=== PATIENT | male | born 1985 | race Caucasian/White ===

== ENCOUNTER 2019-05-30 17:10 | Inpatient (IN) | payer SELFPAY ==
--- NOTE | ~2019-05-30 | XR_ITS ---
EXAMINATION: XR chest 1V portable INDICATION: Right-sided chest pain and shortness of breath TECHNIQUE: Portable AP chest at 1821 hours COMPARISON: None available FINDINGS: There are minimal opacities of the lung bases and right midlung zone. There is no pleural e ffusion or pneumothorax. The cardiomediastinal silhouette is normal. The visualized bones and soft ti ssues are unremarkable. IMPRESSION: 1. Minimal opacities of the lung bases and right midlung zone, consistent with atelectasis versus pne umonia. Reviewed, dictated and finalized at location A. IMPRESSION: 1. Minimal opacities of the lung bases and right midlung zone, consistent with atelectasis versus pneumonia.
--- NOTE | ~2019-05-30 | CT_ITS ---
EXAMINATION: CTA chest DATE: 05/30/2019 20:51 INDICATION: Chest pain and hypertension TECHNIQUE: Computed tomographic angiography (CTA) of the chest was performed without and with 100 mL Omnipque-350 intravenous contrast. Maximum intensity projection 3D-reconstructions of the aorta and o ther arteries were constructed by the technologist on a separate workstation. The dose-length product (DLP) was 1265.85 mGy-cm. Automated exposure control and iterative reconstruction technique were emp loyed. COMPARISON: None. FINDINGS: The aorta is normal without evidence of dissection or aneurysm. The lungs are free of acute opacities. No pathologically enlarged thoracic lymph nodes are identified. The heart size is normal. There is mild thoracic spondylosis. The liver is diffusely low in attenuation when compared with the spleen, consistent with hepatic steatosis. The common hepatic artery arises directly from the superi or mesenteric artery. IMPRESSION: 1. No CT correlate for the patient's symptoms. Reviewed, dictated and finalized at location A.
--- NOTE | 2019-05-30 17:17 | ECG_ITS ---
Measurements Intervals [place] Rate: 85 P: 32 LA: 126 QRS: 27 QRSD: 106 T: -24 QT: 340 QTc: 405 Interpretive Statements SINUS RHYTHM ST-T WAVE ABNORMALITY IN INFERIOR LEADS- CONSIDER ISCHEMIA BASELINE ARTIFACT- I, II, III ABNORMAL ECG Electronically Signed On 05-31-2019 8:45:42 CDT by George Erazo D.O.
[2019-05-30 17:22] VITALS: BP 160/104; PULSE 81; RESP 12; TEMP 36.9; O2SAT 96
[2019-05-30 17:24] VITALS: PULSE 87
[2019-05-30 17:28] VITALS: O2SAT 98
[2019-05-30 18:26] LABS: Basophils Absolute Auto 0.1 K/mm3 (0.0-0.1); Basophils Percent Auto 0.8 % (0.2-1.2); Eosinophils Absolute Auto 0.2 K/mm3 (0-0.3); Eosinophils Percent Auto 2.2 % (0-4.4); Hematocrit 39.5 % (42.0-52.0); Immature Granulocyte Absolute 0.05 K/mm3 (0.00-0.031); Immature Granulocyte Percent A 0.6 % (0-0.5); Lymphocytes Absolute Auto 2.54 K/mm3 (0.9-3.2); Lymphocytes Percent Auto 29.4 % (18.3-44.2); Mean Corpuscular Hemoglobin 35.7 pg (26-34); Mean Corpuscular Volume 88.2 fl (80-100); Mean Platelet Volume 9.9 fl (7.4-10.4); Monocytes Absolute Auto 0.6 K/mm3 (0.1-0.6); Neutrophils Absolute Auto 5.2 K/mm3 (1.3-6.7); Platelet Count Result 234 k/mm3 (150-375); Red Blood Count 4.48 M/mm3 (4.6-6.20); Red Cell Distribution Width 12.4 % (11.5-14.5); White Blood Count 8.6 K/mm3 (4.5-10.0)
[2019-05-30 18:46] LABS: Mean Corpuscular HGB Conc 40.5 g/dl (32-36)
[2019-05-30 19:01] LABS: Alanine Aminotransferase 48 U/L (4-50); Albumin Level 3.7 g/dL (3.5-5.1); Alkaline Phosphatase 89 U/L (38-126); Aspartate Amino Transferase 55 U/L (17-59); Bilirubin,Total 0.6 mg/dL (0.2-1.3); Sodium 135 mmol/L (137-145); Troponin I 0.401 ng/mL (0.000-0.034)
[2019-05-30] MEDS: ASPIRIN 81 MG CHEWABLE TABLET 324 MG PO (19:22)
[2019-05-30 19:23] VITALS: BP 195/119; PULSE 101; RESP 20; O2SAT 99
--- NOTE | 2019-05-30 19:23 | ED.CHESTPAIN ---
HPI - Chest Pain General Chief Complaint: Chest Pain Stated Complaint: sudden onset cp/sob Time Seen by Provider: 05/30/19 17:48 Source: patient and EMS Mode of arrival: EMS Limitations: no limitations History of Present Illness HPI narrative: 33-year-old male Obese no known other medical history Complains of onset of right sided chest and arm pain which began on about an hour before arrival when he went to the bathroom at work Worsened by breathing movement movement of his arm and in certain positions No shortness of breath no nausea no dizziness no palpitations complaint: chest pain Onset (ago): hour(s) Timing of current episode: constant and still present Prior episodes: No Onset: other (with minimal exertion) Pain location: right chest Pain radiation: right arm Severity: moderate Quality: aching, sharp and shooting Relieving factors: remaining still Exacerbating factors: inspiration and movement Risk Factors Coronary artery disease risk factors: none Related Data Home Medications Medication Instructions Recorded Confirmed No Home Medications 05/30/19 05/30/19 Allergies Allergy/AdvReac Type Severity Reaction Status Date / Time clonidine [From Catapres] Allergy Rash Verified 05/30/19 17:25 Review of Systems Review of Systems: All systems reviewed & are unremarkable except as noted in HPI and below Constitutional: Constitutional: Denies chills and Denies fever(s) ENT: Denies dysphagia and Denies sore throat Cardiovascular: Cardiovascular: Reports chest pain and Reports radiating jaw, neck or arm pain Respiratory: Respiratory: Reports no additional respiratory complaints, Denies cough and Denies dyspnea Gastrointestinal: Gastrointestinal: Denies nausea and Denies vomiting Musculoskeletal: Musculoskeletal: Denies myalgias, Denies arthralgias and Denies joint swelling Neurologic: Denies dizziness, Denies syncope and Denies focal weakness PMFSH Social History Social History Gender identity (if verbalized by the patient): Male Exam Const: General: healthy appearing, no acute distress and well developed Nutritional Appearance: well nourished and obese Orientation/consciousness: patient oriented x3 (alert) and Other orientation findings (Alert) Limitations: no limitations HENMT: Head: normocephalic and atraumatic Ears: external ears normal General nose exam: No nasal discharge present and no epistaxis Face and sinus: face symmetric Mouth: Yes lip normal, Yes tongue normal and Yes moist mucous membranes Throat: other (No exudate, no erythema) Eyes: Conjunctivae: conjunctivae normal Sclera: sclerae normal EOM: EOMs intact bilaterally Neck: Neck: full ROM, no lymphadenopathy and supple Thyroid: thyroid normal Chest: Chest palpation & inspection: tenderness Other: mildly tender, hard to reproduce w/ palpation Resp: Effort & Inspection: normal respiratory effort Auscultation: clear to auscultation bilaterally, no rales, no rhonchi, no wheezes and other (breath sounds equal) Cardio: Rate: regular rate Rhythm: regular rhythm Heart sounds: no gallops and no murmurs GI: Inspection: non-distended GI Palp: No abdominal tenderness and Yes Soft to palpation Auscultation: other (bowel sounds present) : General: Yes no CVA tenderness Back/Spine/Pelvis: Back: no CVA tenderness Thoracic/Lumbar Spine: thoracic and lumbar spine normal to inspection Skin: General skin exam: normal color and no rashes or lesions noted Neuro: General: patient oriented x3 (alert), moves all extremities and no focal motor deficits Cranial nerves: Yes facial symmetry Speech: normal speech Motor exam (neuro): Motor abnormalities not present Extrem: General: normal to inspection, full ROM and no pedal edema Psych: Affect: normal affect Course Course Emergency Course: trop returned high and was trended, and doubled his cp was present off and on but
--- NOTE | 2019-05-30 19:25 | ECG_ITS ---
Measurements Intervals [place] Rate: 90 P: 43 MA: 130 QRS: 28 QRSD: 104 T: -17 QT: 335 QTc: 410 Interpretive Statements SINUS RHYTHM BORDERLINE ST-T WAVE ABNORMALITY- INFERIOR LEADS BASELINE WANDER- V1, V4-V6 BORDERLINE ECG Electronically Signed On 05-31-2019 8:48:21 CDT by George Erazo D.O.
[2019-05-30] MEDS: NITROGLYCERIN OINTMENT 1 INCH DOSE TRANSDERM (19:39)
[2019-05-30] MEDS: LABETALOL HCL INJ 100 MG/20 ML VIAL 20 MG IV PUSH (20:04)
[2019-05-30 20:22] LABS: Blood Urea Nitrogen 15 mg/dL (9-20); Carbon Dioxide 20 mmol/L (22-30); Chloride 104 mmol/L (98-107); Estimated CRCL calculation 211 ml/min; Estimated Glomerular Filt Rate > 60; Glucose 163 mg/dL (75-110); Potassium 4.5 mmol/L (3.4-5.0)
[2019-05-30 20:24] LABS: Lipase 98 U/L (23-300)
[2019-05-30 20:55] LABS: Cholesterol 405 mg/dL (0-200); Triglycerides > 2625 mg/dL (<150)
[2019-05-30 21:05] VITALS: BP 150/82; PULSE 84; RESP 20; O2SAT 97
[2019-05-30] MEDS: NITROGLYCERIN SL 0.4 MG TABLET SUBLINGUAL (21:29)
[2019-05-30 21:50] LABS: Troponin I 0.759 ng/mL (0.000-0.034)
[2019-05-30] MEDS: MORPHINE SULFATE 4 MG/ML INJ 6 MG IV PUSH (22:54)
[2019-05-30] MEDS: HEPARIN SODIUM 5,000 UNITS/ML VIAL 4000 UNITS IV PUSH (22:59)
[2019-05-30] MEDS: NITROGLYCERIN/D5W 200 MCG/ML 50 MG/250 ML BTL 6 MG IV CONT (23:14)
[2019-05-30] MEDS: HEPARIN SOD/D5W 100 UNITS/ML 25,000 UNITS/250 ML BAG 10 UNITS IV CONT (23:25)
[2019-05-30] MEDS: INSULIN HUMAN REGULAR (*BKC) 100 UNITS in SODIUM CHLORIDE 0.9% IV 99 ML IV CONT (23:34)
[2019-05-30] MEDS: DEXTROSE 5% IN WATER 500 ML 100 ML IV CONT (23:40)
[2019-05-30 23:41] LABS: Glucose Point of Care 175 (65-105)
[2019-05-31] VITALS (15 sets, daily range): BP systolic 126–160; BP diastolic 70–103; PULSE 74–105; RESP 10–21; TEMP 36.7–37.1; O2SAT 93–97; BMI 40.8
--- NOTE | 2019-05-31 00:53 | ADMGEN ---
This patient, Doron Gerber, was admitted to Intensive Care Unit-11. Patient/family oriented to hospital policies and general routines including ID bracelet, bed and alarms, visiting hours, pain management, procedures, bathroom and other care routines, personal items, smoking policy, room service/diet, and visiting hours. Valuables list has been completed. Information on how to activate the Rapid Response Team has been discussed. Patient/Family are encouraged to report perceived risks to care and to ask questions if they do not understand what they are told or what they should do.
--- NOTE | 2019-05-31 01:12 | ECG_ITS ---
Measurements Intervals [place] Rate: 82 P: 28 MD: 121 QRS: 43 QRSD: 98 T: -21 QT: 346 QTc: 405 Interpretive Statements SINUS RHYTHM NONSPECIFIC ST & T-WAVE ABNORMALITY- ANTEROLAT/INF LEADS BORDERLINE ECG Electronically Signed On 06-02-2019 7:10:49 CDT by George Erazo D.O.
[2019-05-31 01:36] LABS: Glucose Point of Care 153 (65-105)
--- NOTE | 2019-05-31 02:01 | PM.IMHP ---
H&P: HPI History of Present Illness Chief complaint: Nstemi, Hypercholesterolemia Narrative: This is a morbidly obese male who presented to the hospital with a complaint of intermittent chest pain over the past 3 weeks that has worsened yesterday. He describes having exertional chest pain over the past 3 weeks that would resolve after he sat down and rested. Yesterday he woke up with chest pain and had continuous chest pain all day long. His chest pain worsened with any kind of exertion and radiated towards his right arm. Associated symptoms included diaphoresis and shortness of breath. On arrival to the ER the patient was evaluated and found to have an elevated troponin. He was treated with nitroglycerin and ASA. He was heparinized and placed on a continuous Nitro drip as his chest pain continued. Cardiology, Dr. Donohue was consulted by ER doctor. The patient was admitted to the ICU for further care. On my encounter with the patient he is still having ongoing chest pain and is currently on a nitro drip at 25 mcg/hr. He denies any recent fevers, sore throat, palpitations, abd pain, dysuria, nausea, vomiting, diarrhea, rectal bleeding or LE swelling. His last stress test was over 10 years ago. His brother was known to have an WA at age 32. The patient smokes 1 ppd and is known to have smoked at one point 5 ppd for 10 years. Review of Systems Review of Systems: All systems reviewed & are unremarkable except as noted in HPI and below PMFSH Past Medical History Medical History Pancreatitis Surgical History Surgical History History of cholecystectomy Family History Family History Grandparent Heart failure Heart attack Lung cancer Colon cancer Liver cancer Pancreatic cancer Esophageal cancer Diabetes mellitus Mother Heart attack Breast cancer Liver cancer Diabetes mellitus Father Heart failure Heart attack Diabetes mellitus Sibling Diabetes mellitus Other Hypertension Social History Social History Smoking packs per day: 1 Smoking cigarettes per day: 20.0 Years smoked: 23 Smoking pack-years: 23.00 Smoking status: Current every day smoker Tobacco type: cigarettes Second hand tobacco smoke exposure: Yes Alcohol intake: current Drinks per week: 1 Substance use: former Substance use type: marijuana Last use: March Gender identity (if verbalized by the patient): Male Spiritual care concerns: No Meds Home Medications and Allergies Home Medications Medication Instructions Recorded Confirmed Type No Home Medications 05/30/19 05/30/19 History Allergies Allergy/AdvReac Type Severity Reaction Status Date / Time clonidine [From Catapres] Allergy Rash Verified 05/30/19 17:25 Vital Signs Vital Signs - 24 hr 05/30/19 17:22 05/30/19 17:24 05/30/19 17:28 Temperature 36.9 C Pulse Rate 81 87 Respiratory Rate 12 Blood Pressure 160/104 H Pulse Oximetry 96 98 05/30/19 19:23 05/30/19 21:05 05/31/19 00:37 Temperature 36.7 C Pulse Rate 101 H 84 105 H Respiratory Rate 20 20 20 Blood Pressure 195/119 H 150/82 H 147/79 H Pulse Oximetry 99 97 97 Exam Const: General: cooperative, no acute distress, alert, awake and ill appearing chronically Nutritional Appearance: obese morbidly obese Orientation/consciousness: patient oriented x3 HENMT: Head: normal to inspection General nose exam: Normal external nose present Face and sinus: normal facial exam Mouth: Yes Normal oral and palatal mucosa present and Yes oropharynx normal Eyes: Pupils: Equal, round and reactive pupils present EOM: EOMs intact bilaterally Neck: Neck: supple and no JVD Thyroid: thyroid normal Lymphatic: lymphadenopathy not noted Resp: Effort & Insp
[2019-05-31] MEDS: MORPHINE SULFATE 2 MG/ML INJ IV PUSH (02:27)
[2019-05-31] MEDS: NITROGLYCERIN/D5W 200 MCG/ML 50 MG/250 ML BTL 7.5 MG IV CONT (02:30)
[2019-05-31 02:35] LABS: Glucose Point of Care 140 (65-105)
[2019-05-31] MEDS: INSULIN HUMAN REGULAR (*BKC) 100 UNITS in SODIUM CHLORIDE 0.9% IV 99 ML IV CONT (02:40)
[2019-05-31 03:35] LABS: Glucose Point of Care 135 (65-105)
[2019-05-31] MEDS: DEXTROSE 5% 1,000 ML 1,000 ML 150 ML IV CONT (03:36)
[2019-05-31 05:28] LABS: Glucose Point of Care 126 (65-105)
[2019-05-31 05:28] LABS: Glucose Point of Care 141 (65-105)
[2019-05-31] MEDS: MORPHINE SULFATE 4 MG/ML INJ IV PUSH ×2 (05:28→08:30)
[2019-05-31 05:51] LABS: Hemoglobin A1C 7.2 % (<5.7)
[2019-05-31 06:20] LABS: Basophils Percent Auto 0.5 % (0.2-1.2); Eosinophils Absolute Auto 0.2 K/mm3 (0-0.3); Eosinophils Percent Auto 2.7 % (0-4.4); Hematocrit 33.5 % (42.0-52.0); Hemoglobin 13.1 g/dL (14.0-18.0); Immature Granulocyte Absolute 0.06 K/mm3 (0.00-0.031); Immature Granulocyte Percent A 0.8 % (0-0.5); Immature Platelet Fraction Pct 1.4 % (0.9-11.2); Lymphocytes Absolute Auto 2.65 K/mm3 (0.9-3.2); Lymphocytes Percent Auto 34.3 % (18.3-44.2); Mean Corpuscular Hemoglobin 34.6 pg (26-34); Mean Corpuscular Volume 88.4 fl (80-100); Mean Platelet Volume 10.5 fl (7.4-10.4); Monocytes Absolute Auto 0.5 K/mm3 (0.1-0.6); Monocytes Percent Auto 6.1 % (2.6-8.5); Neutrophils Absolute Auto 4.3 K/mm3 (1.3-6.7); Neutrophils Percent Auto 55.6 % (45.5-73.1); Nucleated Red Blood Cells Perc 0.3 % (0.0-0.2); Platelet Count Result 270 k/mm3 (150-375); Red Blood Count 3.79 M/mm3 (4.6-6.20); White Blood Count 7.7 K/mm3 (4.5-10.0)
[2019-05-31 06:21] LABS: Mean Corpuscular HGB Conc 39.1 g/dl (32-36)
[2019-05-31 06:24] LABS: Glucose Point of Care 136 (65-105)
[2019-05-31 07:29] LABS: Blood Urea Nitrogen 16 mg/dL (9-20); Calcium 7.9 mg/dL (8.4-10.2); Carbon Dioxide 18 mmol/L (22-30); Chloride 106 mmol/L (98-107); Estimated CRCL calculation 158 ml/min; Estimated Glomerular Filt Rate > 60; Glucose 126 mg/dL (75-110); Potassium 3.8 mmol/L (3.4-5.0); Sodium 134 mmol/L (137-145)
[2019-05-31] MEDS: HEPARIN SODIUM 5,000 UNITS/ML VIAL 4000 UNITS IV PUSH (07:44)
--- NOTE | 2019-05-31 08:10 | PM.CNCAR ---
Assessment and Plan Additional Plan 33-year-old white male with: Chest pain syndrome which has features that are worrisome for ischemia and other features which of course are atypical. He has risk factors including a family history of markedly premature coronary disease, longstanding cigarette smoking and severe dyslipidemia. The patient does now have some pain radiating into the right lateral portion of his abdomen. He did indicate that some of the symptoms are reminiscent of his bout of pancreatitis 6 years ago. He certainly has high enough triglyceride levels to be a concern for this as well. At this point I believe we need to definitively assess his coronary arteries and I recommended bringing him for angiography this morning. The patient understands this and is agreeable. The cathode builder team that is on-call will be called in we will proceed with this exam this morning. Sancho Donohue MD [facility] History of Present Illness History of Present Illness Consult date/time: Date of service: 05/31/19 08:10 Consult reason: chest pain Reason For Visit: Nstemi, Hypercholesterolemia Narrative: This is a 33-year-old white male who has no previous history of documented cardiac disease he was admitted yesterday evening from the emergency room with chest pain to the hospitalist service. Because of this and elevation in troponin I am seeing him in consultation. The patient states that he has had a pattern of central chest discomfort with exertion for 2 or 3 weeks. The discomfort was noticed when he was walking from the parking lot into his placement placement. He works for [employer] and states that when he would walk into work he would have to stop because of the symptoms and after admitted her to these would usually resolve. Yesterday morning he had the onset of the symptoms and he sat down to rest and instead of resolving it did not. He then began to experience some other symptoms of some shortness of breath. Because of this he was taken by ambulance to the emergency room for evaluation. In the emergency department his electrocardiogram was found to be abnormal with some inferior T-wave inversion. He does not have any significant ST segment deviation or any obvious occur current of injury. His troponin level did rise up some on the 2nd sample and so he was started on a heparin infusion at, IV nitroglycerin. Given aspirin and a dose of labetalol it looks like and placed in the ICU. In this setting I was asked to see him in consultation. This morning he states he still has some chest pain in the epigastric region the pain this morning is radiating down into the right lateral abdominal wall. In the emergency room he had some radiation of the pain into the right arm that is no longer the case at this moment. In the emergency room he did have a chest CT which was negative. The patient does interestingly have a history of a severe episode of pancreatitis which states he was in the hospital somewhere in [place] for a 5/6 months about 6 years ago. He was apparently in a comatose state and does not remember much about that hospitalization. He states he did have a cholecystectomy at that time. He does have a family history of coronary artery disease prematurely in his mother and 1 brother. The patient's laboratory data in addition to a [id number] troponin rise also shows marked dyslipidemia with high cholesterol and extremely high triglyceride levels. Review of Systems Constitutional: Constitutional: Reports no additional constitutional complaints Eyes: Eyes: Reports no additional eye complaints ENT: Reports system reviewed and no additional complaints, except as documented Cardiovascular: Cardiovascular: Reports as per HPI and Reports chest pain Respiratory: Respiratory: Reports no additional respiratory complaints Gastrointestinal: Gastrointestinal: Reports as per HPI Genitourinary: Genitourinary: Reports no additional male genit
[2019-05-31] MEDS: FENOFIBRATE 160 MG TABLET PO (08:24)
[2019-05-31] MEDS: OMEGA 3 POLYUNSAT FATTY ACIDS 1 GM CAP PO (08:24)
[2019-05-31] MEDS: ASPIRIN 81 MG CHEWABLE TABLET PO (08:25)
[2019-05-31 08:29] LABS: Glucose Point of Care 155 (65-105)
[2019-05-31 08:29] LABS: Glucose Point of Care 139 (65-105)
[2019-05-31 09:08] LABS: Lipase 119 U/L (23-300)
--- NOTE | 2019-05-31 09:27 | WPDCNINT ---
Assessment and Plan Assessment and plan (1) Acute non-ST elevation myocardial infarction (NSTEMI): Code(s): I21.4 - Non-ST elevation (NSTEMI) myocardial infarction Status: Acute Assessment and Plan: patient on aspirin, heparin infusion and nitroglycerin infusion cardiology is planning to take patient for cardiac catheterization today. Dr. Donohue wants to wait for catheterization report before starting patient on Plavix for statin at this time ECHO is ordered (2) Hypertriglyceridemia: Code(s): E78.1 - Pure hyperglyceridemia Status: Acute Assessment and Plan: insulin infusion and dextrose patient on Tricor statin will be started depending on cath report (3) Tobacco dependence: Code(s): F17.200 - Nicotine dependence, unspecified, uncomplicated Status: Acute Assessment and Plan: encourage patient to quit (4) Morbid obesity: Code(s): E66.01 - Morbid (severe) obesity due to excess calories Status: Acute Assessment and Plan: encourage patient to try to lose weight by eating healthy and exercising daily once acute illness is resolved (5) HTN (hypertension) with goal to be determined: Code(s): I10 - Essential (primary) hypertension Status: Acute Assessment and Plan: currently controlled on nitroglycerin infusion patient will be started on p.o. medication after cardiac catheterization are available (6) Abnormal glucose: Code(s): R73.09 - Other abnormal glucose Status: Acute Assessment and Plan: on insulin infusion at this time Additional Plan DVT prophylaxis - heparin drip Stress ulcer prophylaxis - not indicated Nutrition - NPO Code Status - Full Code Dredge Master Consult Note Consult date: 05/31/19 Time Seen: 07:20 HPI: Doron Gerber is a 33 year old male with past medical history of pancreatitis, gallstones and cholecystectomy presented yesterday to ER with chief complaint of chest pain. In the ER patient was found to be hypertensive, EKG did not showed ST elevation, had elevated troponin and very high level of triglycerides.. Cardiology was consulted. Patient was started on IV heparin, aspirin, nitroglycerin infusion and insulin infusion and admitted to ICU. CTA of chest was negative Patient told me that patient has been having chest pain for last 2-3 weeks which was initially mostly on exertion, on the right radiated to his and neck. It is 5 to 7/10 severe and intermittent. Pain was Sharp. 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 yesterday the pain became very severe 10/10 and was on his right side of chest and abdomen and radiated to his arm and neck other aspects of pain were similar. this morning patient feels better although he states he has pain is 4 to 5/10 as it was partially help with nitroglycerin and morphine he denies any shortness of breath, cough, fever, nausea vomiting, headache Review of Systems Constitutional: Constitutional: Denies fever(s), Reports snoring, Denies stops breathing during sleep and Reports weight gain Eyes: Eyes: Denies blurry vision ENT: Reports system reviewed and no additional complaints, except as documented Cardiovascular: Cardiovascular: Reports chest pain with activity, Denies rapid heart rate, Denies leg edema, Denies palpitations, Denies dyspnea, Denies dyspnea on exertion, Denies orthopnea and Denies paroxysmal nocturnal dyspnea Respiratory: Respiratory: Denies change in phlegm color, Denies cough and Denies hemoptysis Gastrointestinal: Gastrointestinal: Reports no additional gastrointestinal complaints Genitourinary: Genitourinary: Reports no additional male genitourinary complaints Musculoskeletal: Musculoskeletal: Reports no additional musculoskeletal complaints Integumentary/Breasts: Skin/Breast: Reports system reviewed and no additional complaints, except as docu Neurologic: Reports system reviewed and
[2019-05-31 09:35] LABS: Glucose Point of Care 146 (65-105)
[2019-05-31] MEDS: DEXTROSE 5%/0.9% SOD CHL 1,000 ML 150 ML IV CONT (10:00)
--- NOTE | 2019-05-31 10:02 | WPDMODSED ---
Moderate Sedation Note-Pt Data Patient Data Present Complaint: Chest pain/acute coronary syndrome hypertriglyceridemia Procedure to be performed/Plan: left heart catheterization Allergies Allergy/AdvReac Type Severity Reaction Status Date / Time clonidine [From Esther] Allergy Rash Verified 05/30/19 17:25 Home Medications Medication Instructions Recorded Confirmed Type No Home Medications 05/30/19 05/30/19 History Current Medications: Active Medications Aspirin (Aspirin Chewable) 81 mg PO DAILY@0800 [facility] Last Admin: 05/31/19 08:25 Dose: 81 mg Documented by: Dextrose (Dextrose 50% Syringe) 12.5 gm IV PUSH PRN PRN; Protocol PRN Reason: Hypoglycemia Fenofibrate (Fenofibrate) 160 mg PO DAILY [facility] Last Admin: 05/31/19 08:24 Dose: 160 mg Documented by: Fish Oil (Lovaza) 1 gm PO QAM [facility] Last Admin: 05/31/19 08:24 Dose: 1 gm Documented by: Glucagon (Glucagon For Inj) 1 mg IM PRN PRN; Protocol PRN Reason: Hypoglycemia Glucose (Glutose 15) 15 gm PO PRN PRN; Protocol PRN Reason: Hypoglycemia Heparin Sodium (Porcine) (Heparin Sodium) 4,000 units IV PUSH PRN PRN PRN Reason: aPTT less than 55 seconds Last Admin: 05/31/19 07:44 Dose: 4,000 units Documented by: Heparin Sodium (Porcine) (Heparin Sodium) 4,000 units IV PUSH PRN PRN PRN Reason: aPTT 55 - 70 seconds Heparin Sodium/Dextrose (Heparin Sodium/D5w 100 Units/Ml) 25,000 units in 250 mls @ 0 mls/hr IV CONT .Q0M [facility]; Protocol Last Titration: 05/31/19 08:30 Dose: 0 units/hr, 0 mls/hr Documented by: Nitroglycerin/Dextrose (Nitroglycerin In 5% Dextrose 50 Mg) 50 mg in 250 mls @ 1.5 mls/hr IV CONT .Q24H [facility]; Protocol Last Titration: 05/31/19 05:30 Dose: 25 mcg/min, 7.5 mls/hr Documented by: Insulin Aspart 100 units/ (Sodium Chloride) 100 mls @ 1.5 mls/hr IV CONT .Q24H [facility]; Protocol Last Titration: 05/31/19 06:23 Dose: 1.5 units/hr, 1.5 mls/hr Documented by: Dextrose (Dextrose 5% 1,000 Ml) 1,000 mls @ 150 mls/hr IVPB PRN PRN; Protocol PRN Reason: Hypoglycemia Dextrose/Sodium Chloride (Dextrose 5% Sodium Chloride 0.9%) 1,000 mls @ 150 mls/hr IV CONT .Q6H40M LISA Ondansetron HCl (Zofran Inj) 4 mg IV PUSH Q4H PRN PRN Reason: Nausea Sedation/Anesthesia: No previous sedation/anesthesia problems (including family history). PMF Past Medical History Medical History Pancreatitis Surgical History Surgical History History of cholecystectomy Family History Family History Grandparent Heart failure Heart attack Lung cancer Colon cancer Liver cancer Pancreatic cancer Esophageal cancer Diabetes mellitus Mother Heart attack Breast cancer Liver cancer Diabetes mellitus Father Heart failure Heart attack Diabetes mellitus Sibling Diabetes mellitus Other Hypertension Social History Social History Smoking packs per day: 1 Smoking cigarettes per day: 20.0 Years smoked: 23 Smoking pack-years: 23.00 Smoking status: Current every day smoker Tobacco type: cigarettes Second hand tobacco smoke exposure: Yes Alcohol intake: current Drinks per week: 1 Substance use: former Substance use type: marijuana Last use: March Gender identity (if verbalized by the patient): Male Spiritual care concerns: No Mod Sed Physical Exam Physical Exam Pre Procedural Exam: Normal: Neck, Throat, Airway, Lungs, Heart Rate, Heart Rhythm, Neuro Exam and Extremities and Variation: Appearance ( obese white male no apparent distress) and Heart Size ( PMI not palpable) Hours since solid foods: 12 Hours since liquid intake: 12 Internal Medicine - PN: Obj Da Vital Signs Vital Signs: Vital Signs - 24 hr 05/30/19 17:22 05/30/19 17:24 05/30/19 17:28 Temperature 36.9 C Pulse Rate 81 87 Respiratory
--- NOTE | 2019-05-31 10:46 | WPDCARDPROC ---
Cardiac Cath Procedure Note Date of procedure:: 05/31/19 Performing physician:: Sancho Donohue MD Indication:: acute coronary syndrome Brief clinical history:: 33-year-old man with a history of premature coronary disease in his family. Patient denies any history of smoking and significant dyslipidemia with very high triglycerides noted on admission. He has a previous history of pancreatitis about 6 years ago. Because of ACS with elevated troponins angiography has been recommended Procedure Procedure performed:: left heart catheterization with left ventriculography and coronary angiography placement of intra-aortic balloon pump Sedation/Medication given:: Versed 2 mg case start time 10:10 a.m. case end time 10:40 a.m. sedation provided by Malinda Musa RN , trained observer Access site:: right femoral artery Estimated blood loss:: 15-20 cc Procedure note:: patient was brought to the cardiac laborer rags in the setting described above the right femoral triangle was prepared and draped in the usual fashion. Anesthesia was provided with 1% lidocaine infiltrated locally. Using modified Seldinger technique and placed a 5 Sudanese sheath in the femoral artery and performed left heart catheterization. A 5 Sudanese angled pigtail catheter was used to measure left-sided hemodynamics and inject in LV g in the SENA projection. Following this the left coronary artery was injected in multiple projections using standard 5 Sudanese FL4 catheter and the right coronary was injected using a 5 Sudanese JR4 catheter. The cineangiograms were reviewed. It was then determined that the patient would benefit from placement of an intra-aortic balloon pump. The 5 Sudanese in case sheath was removed over the case wire an 8 Sudanese balloon pump sheath was placed. Following this the inferior leads balloon pump was placed into the descending thoracic aorta and at one-to-one counterpulsation was initiated. The patient was placed on IV heparin. He was taken to the ICU after the sheath and balloon pump assembly was sutured into position. Procedure was uncomplicated and well tolerated. Plans are being made for transfer to cardiothoracic surgery surgery Center for coronary bypass grafting Findings:: central aortic pressure is 148/92 left ventricle 156/0 end-diastolic pressure 20 there is no significant gradient on pullback across the aortic valve. The left ventricle appears to be of normal size. All segments contract appropriately the global ejection fraction is 50%. The left main coronary artery is very large in caliber and is nicely patent the LAD is a moderate caliber vessel gives rise to a very large diagonal branch immediately after this large diagonal branch the trunk of the LAD has a discrete 95% stenosis. It is a large caliber artery distal to this. The circumflex is a large caliber vessel in appears to be 100% occluded in the proximal segment with [id number] collateral filling of the remainder of the vessel which is quite large in caliber and fills late by collaterals. The right coronary artery is a large in caliber and dominant to the posterior circulation the 1st portion of the RPDA has 99% stenosis. 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 as detailed above in this 33-year-old man presenting with acute coronary syndrome and non ST elevation [place] preserved left ventricular systolic function high-grade stenosis in the LAD just after large diagonal takes its origin total occlusion of the circumflex proximally with [id number] collateral filling of the remainder of the vessel which appears to be quite large and a good revascularization target high-grade stenosis of the proximal portion of the RPDA which is also a target for revascularization because of the multivessel nature of the disease and chest pain at rest over the course of the night an intra-aortic balloon pump was placed and we will be making arrangements for transfer to a
[2019-05-31 11:27] LABS: Glucose Point of Care 132 (65-105)
[2019-05-31] MEDS: METOPROLOL TARTRATE 25 MG TABLET PO (12:11)
[2019-05-31] MEDS: ATORVASTATIN 40 MG TABLET 80 MG PO (12:11)
[2019-05-31 12:14] LABS: Glucose Point of Care 141 (65-105)
[2019-05-31 13:23] LABS: Glucose Point of Care 135 (65-105)
[2019-05-31 14:07] LABS: Glucose Point of Care 147 (65-105)
[2019-05-31 15:05] LABS: Glucose Point of Care 137 (65-105)
--- NOTE | 2019-07-14 15:42 | P.TS_ITS ---
Transfer Discharge Sum: Prov Provider Date of admission: 05/30/19 23:09 Primary care physician: UNKNOWN,DOCTOR Admitting clinician: Reyes Bennett MD Consults: 05/30/19 23:12 Consult to Physician Routine Comment: Consulting Provider: Sancho Donohue Reason for consultation: nstemi Has provider been notified: Yes Consult to Physician Routine Comment: Consulting Provider: James Wade Reason for consultation: icu Has provider been notified: Yes DS: Admitting Diagnosis Admitting Diagnosis Admitting Diagnosis: Non-ST elevation (NSTEMI) myocardial infarction Transfer Discharge Sum: Med Medications Active and Home Medications: Home Medications No Home Medications 05/30/19 [History Confirmed 05/30/19] Transfer Discharge Sum: Hosp Hospital Course Hospital course: Doron Gerber is a 33 year old male who was admitted to the hospital with intermittent chest pain atypical in quality but somewhat atypical in setting for ischemic heart disease. Because of his troponin elevation however he was anticoagulated on the evening of admission and the following morning brought for coronary angiography. Patient was found to have multivessel coronary disease at a very premature age which is prevalent in his family. The details are in the separately dictated catheterization procedure note but in essence he had high-grade stenosis in the proximal LAD as well as in the distal right coronary artery. The circumflex was 100% occluded with collateral filling. He did have relatively normal looking left ventricular systolic function which was remarkable given the multivessel coronary artery disease as was found above. He required coronary artery bypass grafting. He had an intra- aortic balloon pump placed and was then systemically anticoagulated and transferred for surgical revascularization. Time Spent with Patient Time attestation: Total time spent providing and/or coordinating transfer services: Exam Const: General: comfortable and no acute distress Other: Obese white male no apparent distress HENMT: Mouth: Yes moist mucous membranes Eyes: Sclera: sclerae normal Pupils: Equal, round and reactive pupils present Neck: Neck: supple and no JVD Thyroid: thyroid normal Resp: Effort & Inspection: normal respiratory effort Auscultation: clear to auscultation bilaterally Cardio: Rhythm: regular rhythm Other: PMI not palpable because of the patient's body habitus GI: Auscultation: normal bowel sounds Skin: General skin exam: normal color Neuro: Cognition (Neuro): normal cognition Extrem: General: normal to inspection
== END 2019-05-31 16:17 | disposition short-term general hospital (02) | DRG 190 ==
LOC: ANHED 22:54 → ANHICU 23:42
PROVIDERS: Internal Medicine; Specialist; Admitting Provider Family Medicine; Emergency Provider Emergency Medicine; Visit Provider Family Medicine
PROC: 4A023N7 Measurement of Cardiac Sampling and Pressure, Left Heart, Percutaneous Approach (ICD-10-PCS; CPT 93452; principal; 2019-05-31 09:00)
PROC: 5A02210 Assistance with Cardiac Output using Balloon Pump, Continuous (ICD-10-PCS; 2019-05-31 09:00)
DX: I21.4 Non-ST elevation (NSTEMI) myocardial infarction (principal); E66.01 Morbid (severe) obesity due to excess calories; E78.00 Pure hypercholesterolemia, unspecified; F17.210 Nicotine dependence, cigarettes, uncomplicated; Z90.49 Acquired absence of other specified parts of digestive tract; E78.1 Pure hyperglyceridemia; Z82.49 Family history of ischemic heart disease and other diseases of the circulatory system; Z68.41 Body mass index [BMI] 40.0-44.9, adult; I25.10 Atherosclerotic heart disease of native coronary artery without angina pectoris
CPT/HCPCS: 33967; 36415; 71045; 71275; 80048; 80053; 80061; 83036; 83690; 84443; 84478; 84484; 85025; 85055; 85730; 87086; 93005; 93458; 96365; 96375; 99291; A9270; C1887; C1894; J0461; J1644; J1815; J2250; J2270; J2370; J3010; J7040; J7042; J7060; J7070; Q9967

== ENCOUNTER 2019-10-23 17:53 | Observation (INO) | payer SELFPAY ==
--- NOTE | ~2019-10-23 | CT_ITS ---
EXAMINATION: CTA chest PE protocol DATE: 10/23/2019 19:47 INDICATION: Chest pain. Shortness of breath. TECHNIQUE: Computed tomography angiography (CTA) of the chest was performed with 100 mL Omnipaque-350 intravenous contrast timed to evaluate the pulmonary arteries. Coronal maximum intensity projection 3D-reconstructions were created by the technologist. Automated exposure control and iterative reconst ruction technique were employed. The dose-length product was 1083.44 mGy-cm. COMPARISON: Chest CT 05/30/2019 FINDINGS: There is a 3 mm nodule right upper lobe. There is mild atelectasis bilaterally. No pleural effusion. The heart size is normal. There are changes of coronary artery bypass grafting. No pericard ial effusion. There is no pulmonary embolus. There are changes of cholecystectomy. There is diffuse h epatic steatosis. There is lucency around some of the sternotomy screws, consistent with loosening. T here is mild thoracic spondylosis. IMPRESSION: 1. No pulmonary embolus. 2. Lucency around some of the sternotomy screws, consistent with loosening. Reviewed, dictated and finalized at location A.
--- NOTE | ~2019-10-23 | XR_ITS ---
EXAMINATION: XR chest 2V DATE: 10/23/2019 18:47 INDICATION: Mid to left-sided chest pain. TECHNIQUE: Frontal and lateral views of the chest were obtained. COMPARISON: Chest 2 views 05/30/2019, chest CT 05/30/2019 FINDINGS: The chest demonstrates clear lungs without pneumonia, pleural effusion, or pneumothorax. Th e heart size is normal. Median sternotomy wires and mediastinal surgical clips are seen, likely from prior coronary artery bypass grafting. IMPRESSION: 1. No acute cardiopulmonary disease. Reviewed, dictated and finalized at location A.
[2019-10-23 18:00] VITALS: BP 163/108; PULSE 96; RESP 18; TEMP 36.8; O2SAT 97
--- NOTE | 2019-10-23 18:00 | ECG_ITS ---
Measurements Intervals [place] Rate: 89 P: 41 WA: 116 QRS: 40 QRSD: 99 T: -25 QT: 322 QTc: 392 Interpretive Statements SINUS RHYTHM WITH SHORT WA INTERVAL BORDERLINE ST-T WAVE ABNORMALITY- ANTEROLAT/INF LEADS BORDERLINE ECG Electronically Signed On 10-24-2019 6:57:10 CDT by George Erazo D.O.
[2019-10-23 18:04] VITALS: PULSE 96
[2019-10-23 18:22] LABS: Basophils Absolute Auto 0.1 K/mm3 (0.0-0.1); Basophils Percent Auto 0.6 % (0.2-1.2); Eosinophils Absolute Auto 0.2 K/mm3 (0-0.3); Eosinophils Percent Auto 2.1 % (0-4.4); Hematocrit 37.1 % (42.0-52.0); Hemoglobin 13.2 g/dL (14.0-18.0); Immature Granulocyte Absolute 0.03 K/mm3 (0.00-0.031); Immature Granulocyte Percent A 0.4 % (0-0.5); Lymphocytes Absolute Auto 1.74 K/mm3 (0.9-3.2); Lymphocytes Percent Auto 21.9 % (18.3-44.2); Mean Corpuscular HGB Conc 35.6 g/dl (32-36); Mean Corpuscular Hemoglobin 30.6 pg (26-34); Mean Corpuscular Volume 86.1 fl (80-100); Monocytes Absolute Auto 0.5 K/mm3 (0.1-0.6); Monocytes Percent Auto 6.2 % (2.6-8.5); Neutrophils Absolute Auto 5.5 K/mm3 (1.3-6.7); Neutrophils Percent Auto 68.8 % (45.5-73.1); Platelet Count Result 221 k/mm3 (150-375); Red Blood Count 4.31 M/mm3 (4.6-6.20); Red Cell Distribution Width 13.2 % (11.5-14.5); White Blood Count 7.9 K/mm3 (4.5-10.0)
[2019-10-23 18:32] LABS: INR 0.9; Prothrombin Time 12.2 Seconds (11.1-14.7)
[2019-10-23 18:33] LABS: Anion Gap 5 mmol/L (8-16); Blood Urea Nitrogen 15 mg/dL (9-20); Calcium 8.7 mg/dL (8.4-10.2); Carbon Dioxide 22 mmol/L (22-30); Chloride 108 mmol/L (98-107); Estimated CRCL calculation 130 ml/min; Estimated Glomerular Filt Rate > 60; Glucose 170 mg/dL (75-110); Partial Thromboplastin Time 31.8 SECONDS (22.3-36.8); Potassium 3.8 mmol/L (3.4-5.0); Sodium 135 mmol/L (137-145)
--- NOTE | 2019-10-23 18:42 | ECG_ITS ---
Measurements Intervals [place] Rate: 94 P: 37 AR: 129 QRS: 38 QRSD: 92 T: 55 QT: 330 QTc: 413 Interpretive Statements SINUS RHYTHM NONSPECIFIC T-WAVE ABNORMALITY- ANTEROLAT/HIGH LAT LEADS BORDERLINE ECG Electronically Signed On 10-24-2019 6:57:36 CDT by George Erazo D.O.
[2019-10-23 18:45] LABS: Troponin I < 0.012 ng/mL (0.000-0.034)
[2019-10-23] MEDS: NITROGLYCERIN SL 0.4 MG TABLET SUBLINGUAL (18:50)
[2019-10-23 19:00] VITALS: BP 177/78; PULSE 92; RESP 18; O2SAT 100
[2019-10-23] MEDS: MORPHINE SULFATE (*CRX) 4 MG/ML INJ IV PUSH (19:19)
[2019-10-23 19:21] VITALS: BP 140/79; PULSE 87; RESP 17; O2SAT 99
--- NOTE | 2019-10-23 19:21 | ED.CHESTPAIN ---
HPI - Chest Pain General Chief Complaint: Chest Pain Stated Complaint: CP Time Seen by Provider: 10/23/19 18:11 History of Present Illness HPI narrative: Patient is a 32-year-old male who presents ER with chest pain. Patient has history of CABG in May 2019. He is unsure who his foreign language professor or cardiothoracic surgeon is. He knows that occurred at [facility]. He reports he has not been on any of his medication for the last 2 months. At 5 PM he began having central chest heaviness that is like an elephant sitting on his chest. Is worse with deep breath. No sweats/chills/nausea/vomiting. Cannot describe any alleviating factors. Received nitro by EMS. Patient reports discomfort radiates into the left arm and it is numb. Related Data Home Medications Medication Instructions Recorded Confirmed No Home Medications 05/30/19 05/30/19 Allergies Allergy/AdvReac Type Severity Reaction Status Date / Time clonidine [From Catapres] Allergy Rash Verified 10/23/19 18:05 Review of Systems Review of Systems: All systems reviewed & are unremarkable except as noted in HPI and below Constitutional: Constitutional: Denies chills, Denies fever(s) and Denies weakness ENT: Denies nasal congestion and Denies sore throat Cardiovascular: Cardiovascular: Reports chest pain, Denies rapid heart rate and Reports radiating jaw, neck or arm pain Respiratory: Respiratory: Denies cough, Denies dyspnea and Denies wheezing Gastrointestinal: Gastrointestinal: Denies abdominal pain, Denies nausea and Denies vomiting PMFSH Past Medical History Medical History (Updated 10/23/19 @ 21:35 by Cesar Alfaro MD) Coronary artery disease Diabetes hemoglobin A1c of 7.08 May 2019 Hypercholesterolemia Hypertension Hypertriglyceridemia Pancreatitis Tobacco abuse disorder Surgical History Surgical History (Updated 10/23/19 @ 19:31 by Cesar Alfaro MD) History of cholecystectomy Hx of CABG Social History Social History Smoking packs per day: 1 Smoking cigarettes per day: 20.0 Years smoked: 23 Smoking pack-years: 23.00 Smoking status: Current every day smoker Tobacco type: cigarettes Second hand tobacco smoke exposure: Yes Alcohol intake: current Drinks per week: 1 Substance use: former Substance use type: marijuana Last use: March Gender identity (if verbalized by the patient): Male Spiritual care concerns: No Exam Narrative: Exam Narrative: GENERAL: Well-appearing, well-nourished, and in no acute distress. HEAD: Normocephalic, atraumatic. ENT: Mucous membranes moist. CHEST: Clear to auscultation. No respiratory distress. HEART: Regular rate and rhythm. Normal peripheral pulses. ABDOMEN: Soft, nontender, nondistended. EXTREMITIES: Normal range of motion. No edema. SKIN: Warm, dry, no rash. NEURO: Alert and oriented x3. PSYCH: Normal mood and affect. Course Course Emergency Course: Patient informed of results. Significant cardiac history. Contacted heart care group who would like patient in the hospital service and they will follow along in consultation. Patient will receive aspirin and Lovenox. Vital Signs Vital signs: Vital Signs Temperature 98.2 F 10/23/19 18:00 Pulse Rate 96 10/23/19 18:00 Respiratory Rate 18 10/23/19 18:00 Blood Pressure 163/108 H 10/23/19 18:00 Pulse Oximetry 97 10/23/19 18:00 Temperature 98.2 F 10/23/19 18:00 Pulse Rate 81 10/23/19 20:34 Respiratory Rate 17 10/23/19 20:34 Blood Pressure 140/91 H 10/23/19 20:34 Pulse Oximetry 97 10/23/19 20:34 MDM - Chest Pain Lab Data Result diagrams: 10/23/19 18:17 10/23/19 18:17 Labs: Lab Results 10/23/19 10/23/19 10/23/19 Range/Units 18:17 18:17 18:17 WBC 7.9 (4.5-10.0) K/mm3 RBC 4.31 L (4.6-6.20) M/mm3 Hgb 13.2 L (14.0-18.0) g/dL Hct 37.1 L (42.0-52.0) % MCV 86.1 (80-10
[2019-10-23 20:34] VITALS: BP 140/91; PULSE 81; RESP 17; O2SAT 97
[2019-10-23] MEDS: ASPIRIN 81 MG CHEWABLE TABLET 324 MG PO (20:34)
[2019-10-23] MEDS: ENOXAPARIN 120 MG/0.8 ML SYRINGE 115 MG SUB-Q (20:34)
--- NOTE | 2019-10-23 20:59 | PM.IMHP ---
H&P: HPI History of Present Illness Date/Time: 10/23/19 20:59 Chief complaint: chest pain Narrative: Doron Gerber is a 32 year old male with a past medical history of chronic tobacco abuse, diabetes and multi-vessel coronary artery disease status post Four vessel CABG May 2019, with subsequent cardiac catheterization 1 week after his CABG with 7 stents placed who presented to the ER with chest pain. the patient reports that he has not been able to afford his medications since the month after his CABG. He reports he did follow-up with his wraparound facilitator and told them they could not afford his medications. The patient has been taking a full-dose aspirin since he cannot afford his anti-platelet medications. He reports that just before going to work today he drank an energy drink. 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 He reported that the pain did radiate up into his neck And he felt as if he may be choking. At the time of my evaluation he is still having some mild left-sided chest discomfort but is no longer having substernal chest discomfort. He reports that his whole body went numb when he started having the chest pain. He reported that his left arm was definitely heavy and numb but this has since resolved. He denies any diaphoresis, lightheadedness or loss of consciousness. He was not having any palpitations. He denies any dyspnea on exertion. He has a history of a pack per day smoking history. He reported that over the last week or so he has cut down to a pack of cigarettes a week. He denies any lower extremity edema, paroxysmal nocturnal dyspnea or orthopnea. 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 He therefore does not have insurance and cannot afford his medications. He reports that his current girlfriend has not witness temp snoring. 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 he reports that he has been checking his Accu-Cheks at least once a day. His glucoses have been running in the low 100s per his report. He reports that his sugars were probably higher when he came to the ER because he drank a regular soda at work since agent have any diet soda available. The patient cannot recall which medications he is supposed to be on. He states that he used to have pitchers of the medications on his phone but he thinks that he deleted the pitchers. He cannot recall the name of his cardiothoracic surgeon or the wraparound facilitator that did his cardiac catheterization at [place]. The patient reports that he has no family members left except for a distant cousin that he has never met. His parents in their early 50s. His father of an [place] and had diabetes. His mother had already had a snjsa-[id number] amputation on 1 extremity and of a DVT/PE from the other extremity. His brother at a young age due to complications of diabetes and end-stage renal disease. He does not have a surrogate decision maker as he does not have anyone he would trust to make those type of decisions for him. His current girlfriend does not feel comfortable being his surrogate decision maker. He is currently a full code. He states that he fully does not expect to live past the age of 34. Review of Systems Review of Systems: Narrative: 12 systems were reviewed with pertinent positives and negatives per HPI. Except as documented in the HPI, all other systems were reviewed and are negative. [facility] Past Medical History Medical History Coronary artery disease Diabetes hemoglobin A1c of 7.08 May 2019 Hypercholesterolemia Hypertension Hypertriglyceridemia Pancreatitis Tobacco abuse disorder Surgical History Surgical History (Updated 10/23
[2019-10-23 21:54] LABS: Troponin I 0.013 ng/mL (0.000-0.034)
[2019-10-23 22:27] VITALS: BP 135/89; PULSE 69; RESP 18; O2SAT 99
[2019-10-24] VITALS (14 sets, daily range): BP systolic 136–166; BP diastolic 71–125; PULSE 60–83; RESP 18–22; TEMP 35.8–36.3; O2SAT 96–100; BMI 40.0; BMI 36.5
--- NOTE | 2019-10-24 00:08 | PC.NURSE ---
pt states he doesn't know his home medications because he has not taken his home medications since August because he has not been able to afford them.
--- NOTE | 2019-10-24 00:52 | ADMGEN ---
This patient, Doron Gerber, was admitted to IMU Room 209-01 FROM ER 10/24/19 0022. Patient/family oriented to hospital policies and general routines including ID bracelet, bed and alarms, visiting hours, pain management, procedures, bathroom and other care routines, personal items, smoking policy, room service/diet, and visiting hours. Valuables list has been completed. Information on how to activate the Rapid Response Team has been discussed. Patient/Family are encouraged to report perceived risks to care and to ask questions if they do not understand what they are told or what they should do.
[2019-10-24 04:13] LABS: Troponin I 0.013 ng/mL (0.000-0.034)
[2019-10-24 08:29] LABS: Glucose Point of Care 149 (65-105)
--- NOTE | 2019-10-24 08:32 | ECG_ITS ---
Measurements Intervals [place] Rate: 63 P: 35 AR: 123 QRS: 39 QRSD: 101 T: 15 QT: 374 QTc: 384 Interpretive Statements SINUS RHYTHM NORMAL ECG Electronically Signed On 10-24-2019 8:55:08 CDT by George Erazo D.O.
--- NOTE | 2019-10-24 09:07 | PM.CNCAR ---
Assessment and Plan Additional Plan 32-year-old white male with: Unfortunately premature coronary artery disease requiring surgical revascularization in the and then requiring percutaneous revascularization of the totally occluded portion of the circumflex to improve flow to the on bypass portion of that vessel. This intervention was done about 4 months ago. Very unfortunately the patient has stopped all his medication except for his aspirin. It is remarkable unfortunate that his biomarkers are negative despite this. By physical exam and history the pain he is describing is clearly chest wall pain it is not any great concern of mine that he has recurrent ischemic chest pain since despite ongoing symptoms since yesterday evening his biomarkers are completely normal at which was not the case in the past when he was actually ischemic. I am going to recommend resuming a regimen of aspirin, clopidogrel, beta-valerie, DONNA-inhibitor and statin. His chest wall pain will be treated with anti-inflammatory medication The hospitalist service will reinstitute therapy for his diabetes At this point I do not plan on conducting an ischemia workup for bringing this gentleman back to the label stitcher. If that was necessary I would likely prefer transfer him to [place] for that since he required a very complex MARINE FIRE FIGHTER intervention 4 months ago Sancho Donohue MD [facility] History of Present Illness History of Present Illness Consult date/time: Date of service: 10/24/19 09:07 Consult reason: chest pain Reason For Visit: chest pain Narrative: This is a 32-year-old patient I am seeing at the request hospitalist because of chest pain. The patient is in room 209 in the IMU and appears to be comfortable essentially sleeping when I entered the room to see him. This is a gentleman who unfortunately at his young age is known to have multivessel coronary artery disease. According to the records we saw this gentleman in May of this year when he came in with chest pain and elevation in his troponins and some inferior T-wave abnormalities. Catheterization at that time demonstrated high-grade stenosis in the mid LAD, high-grade stenosis in the RPDA and total occlusion of the circumflex which was collateralized in an antegrade fashion. Given his symptoms so he was sent to [facility] for surgical revascularization. He received a mammary graft to the LAD vein grafts to the OM circumflex and to the RPDA. Following surgery apparently he was hospitalized there the following month with recurrent chest pain he also had elevation in his troponin at that time and he was brought back to the cardiac catheterization lab. The most likely culprit for his ischemic symptoms was felt to be un bypassed vessels in the posterior circumflex distribution. For that reason he underwent a complex MARINE FIRE FIGHTER intervention in his circumflex with several drug-eluting stents being deployed in that vessel with a favorable angiographic result. He followed up for a short time with Cardiology/Cardiothoracic surgery there but then has not followed up and indicated he could not afford his medications so all of his medications except for his baby aspirin have been stopped. The patient works at the [employer] was at work last evening performing normal non stressful activities and began to experience central/left-sided chest pain again. He had some paresthesias in the left arm at the same time an ambulance was called he was brought back here at [facility] in the emergency room his electrocardiogram looks benign as did his biomarkers. He has continued to have chest pain through the night and still this morning despite the fact that he appears to be in no great distress is reporting 6 to 7/10 chest pain. In the emergency room and at work he noted that the pain was much worse with Inspira damon effort. On Светлана physical exam in the office in the room today the chest pain is clearly reproducible by palpation of the left precordi
[2019-10-24] MEDS: ASPIRIN 81 MG ENTERIC TABLET PO (10:43)
[2019-10-24] MEDS: CLOPIDOGREL BISULFATE 300 MG TABLET PO (10:43)
[2019-10-24] MEDS: ATORVASTATIN 40 MG TABLET 80 MG PO (10:43)
[2019-10-24] MEDS: lisinopriL 10 MG TABLET PO (10:44)
[2019-10-24] MEDS: METOPROLOL SUCCINATE EXT REL 50 MG TABCR PO (10:44)
[2019-10-24] MEDS: KETOROLAC 30 MG/ML VIAL (*BKC) IV PUSH (10:44)
[2019-10-24] MEDS: metFORMIN HCL 250 MG TABLET PO (10:44)
[2019-10-24 12:05] LABS: Glucose Point of Care 172 (65-105)
--- NOTE | 2019-10-24 15:19 | PM.DS ---
DS: Admitting Diagnosis Admitting Diagnosis Admitting Diagnosis: chest pain DS: Discharge Diagnosis Discharge Diagnosis (1) Chest pain: Qualifiers: Chest pain type: other chest pain Qualified Code(s): R07.89 - Other chest pain Code(s): R07.9 - Chest pain, unspecified Status: Acute Assessment and Plan: Patient presented with atypical chest pain. EKG showed no acute findings. Troponins are negative x3. Cardiology was consulted. Patient had a CTA that was negative for pulmonary embolism. It was felt that his chest pain was related to musculoskeletal pain. He was treated symptomatically with benefit. (2) Coronary artery disease: Qualifiers: Coronary Disease-Associated Artery/Lesion type: [place] artery [place] vs. transplanted heart: [place] heart Associated angina: without angina Qualified Code(s): I25.10 - Atherosclerotic heart disease of [place] coronary artery without angina pectoris Code(s): I25.10 - Atherosclerotic heart disease of [place] coronary artery without angina pectoris Status: Acute Assessment and Plan: patient with significant coronary disease. Please see H&P for details. Patient has been noncompliant with his medications except for aspirin. Cardiology has adjust his medications to focus on generic medications in the hopes of patient will be compliant by lowering the cost of his medications. Follow-up with his respiratory director was encouraged. (3) Tobacco dependence: Code(s): F17.200 - Nicotine dependence, unspecified, uncomplicated Status: Acute Assessment and Plan: Patient was educated about the benefits of smoking cessation. Patient has significantly decreased the amount of smoking he does and he was congratulated on this. (4) Essential hypertension: Code(s): I10 - Essential (primary) hypertension Status: Acute Assessment and Plan: Blood pressure elevated on admission. Blood pressure did become better control once we resumed some of his home medications. (5) Diabetes: Qualifiers: Diabetes mellitus type: type 2 Diabetes mellitus long term care social worker insulin use: without long term care social worker use Diabetes mellitus complication status: with circulatory complication Diabetes mellitus complication detail: with other circulatory complications Qualified Code(s): E11.59 - Type 2 diabetes mellitus with other circulatory complications Code(s): E11.9 - Type 2 diabetes mellitus without complications Status: Acute Assessment and Plan: A1c 7.2 in May. Glucose monitored and appear to be well controlled. Metformin started. Healthy lifestyle was encouraged. DS: Summary Hospital Course Reason for hospitalization: 32yo male here for chest pain. Please see H&P for details. Hospital Course: As above Time Spent with Patient Time attestation: Total time spent providing and/or coordinating discharge services: 35 minutes Time spent: Greater than 30 minutes Exam Narrative: Exam Narrative: AF 96.4 136/74 62 22 99% ra Gen - NARD Chest - CTA bilaterally, nml RR CV - RRR S1/S2; Tele showing no significant dysrhythmias Abd - Soft, NT/ND, Positive BS Ext - No pedal edema Neuro - Alert and oriented. Nonfocal exam. Psych - Nml mood but odd affect Skin - Warm and dry DS: Data Data Completed and Pending Labs on day of discharge: Labs from last 24 hours 10/24/19 10/24/19 10/24/19 11:56 08:23 01:45 WBC RBC Hgb Hct MCV MCH MCHC RDW Plt Count MPV Immature Gran % (Auto) Neut % (Auto) Lymph % (Auto) [place] % (Auto) Eos % (Auto) Baso % (Auto) Lymph # (Auto) [place] # (Auto) Eos # (Auto) Baso # (Auto) Abs Immat Gran (auto) Absolute Neuts (auto) Absolute Nucleated RBC Nucleated RBC % PT INR APTT Sodium Potassium Chloride Carbon Dioxide Anion Gap BUN Creatinine
== END 2019-10-24 16:20 | disposition home or self-care (01) ==
LOC: ANHED 21:35 → ANHIMU 10-24 00:18
PROVIDERS: Admitting Provider Internal Medicine; Emergency Provider Emergency Medicine; Visit Provider Internal Medicine
DX: R07.89 Other chest pain (principal); I25.10 Atherosclerotic heart disease of native coronary artery without angina pectoris; E11.9 Type 2 diabetes mellitus without complications; Z95.1 Presence of aortocoronary bypass graft; I10 Essential (primary) hypertension; I25.2 Old myocardial infarction; E78.1 Pure hyperglyceridemia; E78.00 Pure hypercholesterolemia, unspecified; F17.210 Nicotine dependence, cigarettes, uncomplicated; F11.11 Opioid abuse, in remission; F14.11 Cocaine abuse, in remission; F12.11 Cannabis abuse, in remission; Z79.4 Long term (current) use of insulin; Z79.82 Long term (current) use of aspirin; Z95.5 Presence of coronary angioplasty implant and graft
CPT/HCPCS: 36415; 71046; 71275; 80048; 84484; 85025; 85610; 85730; 93005; 96372; 96374; 99285; A9270; G0378; G0379; J1650; J1885; J2270; Q9967